=== PATIENT | male | born 1955 | race Caucasian/White ===

== ENCOUNTER → 2017-08-04 | Outpatient (CLI) | payer BC ==
--- NOTE | 2017-08-04 16:49 | XR ---
EXAMINATION TYPE: PA view chest and left rib series 3 views left shoulder DATE OF EXAM: 08/04/2017 COMPARISON: NONE HISTORY: 61-year-old male left shoulder, posterior upper rib, and chest pain. FINDINGS: CHEST: Heart is normal size. Aorta and pulmonary vasculature within normal limits. Lungs and pleural spaces are clear. Left RIBS: No displaced left rib fracture. Left shoulder: Moderate degenerative changes with spurring at the AC joint. There is overpenetration of the soft tis sues. Of the shoulder. Subacromial space is preserved. No acute fracture or dislocation. IMPRESSION: 1. Chest: No acute cardiopulmonary process. 2. Left ribs: No displaced left rib fracture. 3. Left shoulder: The soft tissues are overpenetrated limiting their assessment. 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 No acute osseous abnormality seen.
== END | disposition home or self-care (01) ==
LOC: RADXRYALE 15:21
PROVIDERS: ATTEND Family Medicine
DX: M19.012 Primary osteoarthritis, left shoulder (principal); R07.9 Chest pain, unspecified

== ENCOUNTER 2022-06-19 09:11 | Day surgery (SDC) | payer MEDICARE, OTHER ==
[~2022-06-19 09:11] MED LIST: LACTATED RINGERS 1,000 ML IV SCH; LIDOCAINE 1% (10MG/ML) FOR IV START INTRADERMA PRN
[2022-06-19 10:51] VITALS: TEMP 98.2
[2022-06-19] MEDS ORDERED: PROPOFOL 10 MG/ML 20 ML VIAL IV ONE (11:40)
--- NOTE | 2022-06-19 11:56 | P.PCN ---
Date of Procedure: 06/19/22 Procedure(s) Performed: BRIEF HISTORY: Patient is a 66-year-old pleasant male scheduled for an elective colonoscopy as a part of screening for colorectal neoplasia. PROCEDURE PERFORMED: Colonoscopy. PREOPERATIVE DIAGNOSIS: Screening for colon cancer. IV sedation per Anesthesia. PROCEDURE: After informed consent was obtained, the patient, was brought into the endoscopy unit. IV sedation was administered by Anesthesia under continuous monitoring. Digital rectal examination was normal. Initially the Olympus CF-160 flexible video colonoscope was then inserted in the rectum, gradually advanced into the cecum without any difficulty. Careful examination was performed as the scope was gradually being withdrawn. Ileocecal valve and the appendiceal orifice were visualized and appeared normal. Prep was excellent. Mucosa of the cecum, ascending colon, transverse colon, descending colon, sigmoid colon, and rectum appeared normal. Retroflexion was performed in the rectum and no lesions were seen. The patient tolerated the procedure well. IMPRESSION: Normal-appearing colon from rectum to cecum with no evidence of colorectal neoplasia . RECOMMENDATIONS: Findings of this examination were discussed with the patient as well as his family. He was advised to have a repeat screening colonoscopy in 10 years..
[2022-06-19 12:04] VITALS: RESP 16
[2022-06-19 12:16] VITALS: BP 101/67; PULSE 57
== END 2022-06-19 12:30 | disposition home or self-care (01) ==
LOC: ORWHC2ENDO 09:11
PROVIDERS: ATTEND Internal Medicine Gastroenterology
DX: Z12.11 Encounter for screening for malignant neoplasm of colon (principal)
CPT/HCPCS: G0121; J2704; 45378